=== PATIENT | female | born 1980 | race Two or more races ===

== ENCOUNTER 2022-09-07 11:36 | Emergency (ER) | payer MEDICAID ==
[~2022-09-07] VITALS: Ht 157.5 cm; Wt 56.9 kg
[2022-09-07 12:49] LABS: Basophils # (auto) 0 10 ^3/uL (0-0.2); Basophils % (auto) 0.2 % (0.0-2.0); Eosinophils # (auto) 0 10 ^3/uL (0-0.8); Eosinophils % (auto) 0.6 % (0.0-7.0); Hematocrit 37.6 % (36.0-46.0); Hemoglobin 12.8 g/dL (12.2-16.2); Lymphocytes # (auto) 2.1 10 ^3/uL (0.4-5.4); Mean Corpuscular Hemoglobin 29.6 pg (28.0-32.0); Mean Corpuscular Hgb Conc. 34.1 g/dL (32.0-36.0); Mean Corpuscular Volume 86.8 fL (80.0-100.0); Monocytes # (auto) 0.6 10 ^3/uL (0-1.3); Monocytes % (auto) 7.8 % (0.0-12.0); Neutrophils # (auto) 5.3 10 ^3/uL (1.6-8.6); Neutrophils % (auto) 65.4 % (37.0-80.0); Red Blood Cells 4.33 10^6/uL (4.0-5.20); Red Cell Distribution Width 13.6 % (11.8-14.3)
[2022-09-07 12:53] LABS: Urine Bacteria FEW /hpf (None Seen); Urine Blood Negative /uL (Negative); Urine Mucus FEW (None Seen); Urine Specific Gravity 1.016 (1.001-1.035); Urine WBC 10 /hpf (0 - 5)
[2022-09-07 13:05] LABS: Albumin 3.1 g/dL (3.4-5.0); Calcium 9.1 mg/dL (8.5-10.1); Potassium 3.3 mmol/L (3.5-5.1)
[2022-09-07 13:09] LABS: BUN/Creatinine Ratio 17.6 (10.0-20.0); Bilirubin, Total 0.2 mg/dL (0.2-1.0); Total Protein 7.5 g/dL (6.4-8.2)
[2022-09-07 14:43] VITALS: BP 113/61
[2022-09-07] MEDS ORDERED: CEPH500T PO (16:27)
[2022-09-07] MEDS ORDERED: metroNIDAZOLE 500 MG TAB PO ONE (16:30)
[2022-09-07] MEDS ORDERED: MET075VC VG (16:34)
== END 2022-09-07 16:52 | disposition home or self-care (01) ==
LOC: ER 11:36
DX: O23.41 Unspecified infection of urinary tract in pregnancy, first trimester (principal); N39.0 Urinary tract infection, site not specified; R10.2 Pelvic and perineal pain; Z3A.12 12 weeks gestation of pregnancy
CPT/HCPCS: 36415; 80053; 81001; 84702; 85025; 87070; 87210

== ENCOUNTER 2022-12-31 20:09 | Observation (INO) | payer MEDICAID ==
[~2022-12-31] VITALS: Ht 154.9 cm; Wt 62.1 kg
[~2022-12-31 20:09] MED LIST: CEPH500T PO; MET075VC VG
[2022-12-31] MEDS ORDERED: TERBUTALINE SULFATE 1 MG/ML 1ML VIAL SC ONE (21:39)
[2022-12-31 21:42] LABS: Basophils # (auto) 0 10 ^3/uL (0-0.2); Basophils % (auto) 0.3 % (0.0-2.0); Eosinophils # (auto) 0.1 10 ^3/uL (0-0.8); Eosinophils % (auto) 0.9 % (0.0-7.0); Hematocrit 35.4 % (36.0-46.0); Hemoglobin 11.8 g/dL (12.2-16.2); Lymphocytes # (auto) 2.1 10 ^3/uL (0.4-5.4); Lymphocytes % (auto) 30.2 % (10.0-50.0); Mean Corpuscular Hemoglobin 29.3 pg (28.0-32.0); Mean Corpuscular Hgb Conc. 33.3 g/dL (32.0-36.0); Mean Corpuscular Volume 88.1 fL (80.0-100.0); Monocytes # (auto) 0.5 10 ^3/uL (0-1.3); Monocytes % (auto) 7.7 % (0.0-12.0); Neutrophils # (auto) 4.1 10 ^3/uL (1.6-8.6); Neutrophils % (auto) 60.9 % (37.0-80.0); Red Blood Cells 4.01 10^6/uL (4.0-5.20); White Blood Cell 6.8 10^3/uL (4.4-10.8)
[2022-12-31 22:01] LABS: Alanine Aminotransferase 12 U/L (7-40); Albumin 3.9 g/dL (3.2-4.8); Alkaline Phosphatase 110 U/L (46-116); Anion Gap 7 (5-15); Aspartate Aminotransferase 14 U/L (13-40); BUN/Creatinine Ratio 20.5 (10.0-20.0); Bilirubin, Total 0.2 mg/dL (0.2-1.0); Blood Urea Nitrogen 9 mg/dL (9-23); Calcium 8.8 mg/dL (8.7-10.4); Carbon Dioxide 23 mmol/L (20-30); Chloride 107 mmol/L (98-107); Glucose 92 mg/dL (74-106); Potassium 3.6 mmol/L (3.5-5.1); Sodium 137 mmol/L (136-145); Total Protein 6.4 g/dL (5.7-8.2)
[2022-12-31] MEDS ORDERED: PREN27TA7 OR (22:37)
== END 2022-12-31 23:00 | disposition home or self-care (01) ==
LOC: LDRP 20:09
PROVIDERS: ADMIT Obstetrics & Gynecology; ATTEND Obstetrics & Gynecology
DX: O60.03 Preterm labor without delivery, third trimester (principal); O26.873 Cervical shortening, third trimester; Z3A.30 30 weeks gestation of pregnancy
CPT/HCPCS: 36415; 59025; 76815; 80053; 81002; 85025; 94760; G0378; J3105; 96372

== ENCOUNTER 2023-01-06 10:40 | Observation (INO) | payer MEDICAID ==
[~2023-01-06] VITALS: Ht 165.1 cm; Wt 72.6 kg
[~2023-01-06 10:40] MED LIST changes: +PREN27TA7 OR
[2023-01-06] MEDS ORDERED: TERBUTALINE SULFATE 1 MG/ML 1ML VIAL SC ONE (11:15)
[2023-01-06] MEDS ORDERED: NIF10C PO (13:05)
== END 2023-01-06 13:27 | disposition home or self-care (01) ==
LOC: LDRP 10:40 → UNDOADMOB 10:40 → LDRP 10:48 → UNDODISOB 13:27
PROVIDERS: ADMIT Obstetrics & Gynecology; ATTEND Obstetrics & Gynecology
DX: O60.03 Preterm labor without delivery, third trimester (principal); Z3A.30 30 weeks gestation of pregnancy
CPT/HCPCS: 59025; 81002; 82948; 96372; G0378; J3105

== ENCOUNTER 2023-01-24 16:25 | Inpatient (IN) | payer MEDICAID ==
[~2023-01-24] VITALS: Ht 149.9 cm; Wt 62.1 kg
[~2023-01-24 16:25] MED LIST changes: +NIF10C PO
[2023-01-24] MEDS ORDERED: PENICILLIN G POT 5MIL/D5 50ML 50 ML IV ONE (17:30)
[2023-01-24] MEDS ORDERED: MAGNESIUM SULFATE 40MG/ML 1,000 ML IV SCH (17:30)
[2023-01-24] MEDS ORDERED: LACTATED RINGER'S 1,000 ML IV SCH (17:30)
[2023-01-24] MEDS ORDERED: LORazepam 2MG/ML-1ML VIAL IV ONE (17:30)
[2023-01-24] MEDS ORDERED: MAGNESIUM SULFATE 100 ML IV ONE ×2 (17:30→17:36)
[2023-01-24] MEDS ORDERED: MAGNESIUM SULFATE 40MG/ML 1,000 ML IV ONE (17:36)
[2023-01-24 19:27] LABS: Basophils # (auto) 0 10 ^3/uL (0-0.2); Basophils % (auto) 0.3 % (0.0-2.0); Eosinophils # (auto) 0 10 ^3/uL (0-0.8); Eosinophils % (auto) 0.8 % (0.0-7.0); Hematocrit 36.7 % (36.0-46.0); Hemoglobin 12.4 g/dL (12.2-16.2); Lymphocytes # (auto) 2.1 10 ^3/uL (0.4-5.4); Lymphocytes % (auto) 34.7 % (10.0-50.0); Mean Corpuscular Hemoglobin 29.9 pg (28.0-32.0); Mean Corpuscular Hgb Conc. 33.8 g/dL (32.0-36.0); Mean Corpuscular Volume 88.4 fL (80.0-100.0); Monocytes # (auto) 0.5 10 ^3/uL (0-1.3); Monocytes % (auto) 7.6 % (0.0-12.0); Neutrophils # (auto) 3.5 10 ^3/uL (1.6-8.6); Neutrophils % (auto) 56.6 % (37.0-80.0); Nucleated Red Blood Cells % 0.1 %; Red Blood Cells 4.15 10^6/uL (4.0-5.20); Red Cell Distribution Width 14.1 % (11.8-14.3); White Blood Cell 6.1 10^3/uL (4.4-10.8)
[2023-01-24 19:46] LABS: Alanine Aminotransferase 10 U/L (7-40); Albumin 3.7 g/dL (3.2-4.8); Alkaline Phosphatase 131 U/L (46-116); Anion Gap 12 (5-15); Aspartate Aminotransferase 17 U/L (13-40); BUN/Creatinine Ratio 22.7 (10.0-20.0); Blood Urea Nitrogen 10 mg/dL (9-23); Calcium 8.8 mg/dL (8.5-10.1); Carbon Dioxide 20 mmol/L (20-30); Chloride 105 mmol/L (98-107); Glucose 92 mg/dL (74-106); Potassium 3.9 mmol/L (3.5-5.1); Sodium 137 mmol/L (136-145)
[2023-01-24 19:47] LABS: Bilirubin, Total 0.3 mg/dL (0.2-1.0); INR 0.87 (0.9-1.15); Partial Thromboplastin Time 25.6 SEC (24.5-34.5); Prothrombin Time 9.2 sec (9.3-11.8); Total Protein 5.9 g/dL (5.7-8.2)
[2023-01-24 20:57] LABS: Urine Bacteria FEW /hpf (None Seen); Urine Blood Negative /uL (Negative); Urine Clarity HAZY (Clear); Urine Color Colorless (Yellow); Urine Protein, UAD Negative (Negative); Urine Specific Gravity 1.014 (1.001-1.035); Urine Urobilinogen Normal (Negative); Urine WBC 8 /hpf (0 - 5)
[2023-01-24 21:02] LABS: Amphetamine Screen, Urine Neg (NEGATIVE)
[2023-01-24 21:03] LABS: Barbiturate Scree,Urine Neg (NEGATIVE); Benzodiazephine Screen, Urine Neg (NEGATIVE); Cannabinoid Screen, Urine Neg (NEGATIVE); Cocaine Screen, Urine Neg (NEGATIVE); Opiate Scree,Urine Neg (NEGATIVE); Phencyclidine Screen, Urine Neg (NEGATIVE)
[2023-01-24] MEDS ORDERED: PENICILLIN G POTASSIUM 2,500,000 UNITS in D5W 5% 50 ML IV SCH (22:00)
[2023-01-26 07:07] LABS: RPR Non Reactive (Non Reactive)
[2023-01-27 19:06] LABS: Treponema pallidum Ab (FTA-Ab) Non Reactive (Non Reactive)
== END 2023-01-24 20:12 | disposition short-term general hospital (02) | DRG 566 ==
LOC: LDRP 16:25 → OBSVTOIN 17:30
PROVIDERS: ADMIT Obstetrics & Gynecology; ATTEND Obstetrics & Gynecology
DX: O60.03 Preterm labor without delivery, third trimester (principal); Z3A.33 33 weeks gestation of pregnancy
CPT/HCPCS: 36415; 59025; 80053; 80307; 81001; 81002; 83735; 85025; 85610; 85730; 86592; 86850; 86900; 86901; 94760; 96360; 96361; 96365; 96366; G0378; J7060

== ENCOUNTER 2023-02-17 10:15 | Inpatient (IN) | payer MEDICAID ==
[~2023-02-17] VITALS: Ht 157.5 cm; Wt 66.7 kg
[2023-02-17 11:24] LABS: Basophils # (auto) 0 10 ^3/uL (0-0.2); Basophils % (auto) 0.4 % (0.0-2.0); Eosinophils # (auto) 0 10 ^3/uL (0-0.8); Eosinophils % (auto) 0.6 % (0.0-7.0); Hematocrit 37.9 % (36.0-46.0); Hemoglobin 12.7 g/dL (12.2-16.2); Lymphocytes # (auto) 1.7 10 ^3/uL (0.4-5.4); Mean Corpuscular Hemoglobin 29.7 pg (28.0-32.0); Mean Corpuscular Hgb Conc. 33.5 g/dL (32.0-36.0); Mean Corpuscular Volume 88.5 fL (80.0-100.0); Monocytes # (auto) 0.4 10 ^3/uL (0-1.3); Monocytes % (auto) 7.6 % (0.0-12.0); Neutrophils # (auto) 3.4 10 ^3/uL (1.6-8.6); Neutrophils % (auto) 61.4 % (37.0-80.0); Red Blood Cells 4.28 10^6/uL (4.0-5.20); Red Cell Distribution Width 14.8 % (11.8-14.3); White Blood Cell 5.6 10^3/uL (4.4-10.8)
[2023-02-17 11:40] LABS: Alanine Aminotransferase 17 U/L (7-40); Albumin 3.7 g/dL (3.2-4.8); Alkaline Phosphatase 148 U/L (46-116); Anion Gap 11 (5-15); Aspartate Aminotransferase 16 U/L (13-40); Blood Urea Nitrogen 8 mg/dL (9-23); Calcium 8.9 mg/dL (8.5-10.1); Carbon Dioxide 20 mmol/L (20-30); Chloride 106 mmol/L (98-107); Glucose 108 mg/dL (74-106); Potassium 3.7 mmol/L (3.5-5.1); Sodium 137 mmol/L (136-145)
[2023-02-17 11:41] LABS: Bilirubin, Total 0.2 mg/dL (0.2-1.0); Total Protein 6.2 g/dL (5.7-8.2)
[2023-02-17] MEDS ORDERED: PENICILLIN G POT 5MIL/D5 50ML 50 ML IV ONE ×2 (12:15→14:08)
[2023-02-17] MEDS ORDERED: BUTORPHANOL TARTRATE 2 MG/1 ML VIAL IV PRN ×2 (12:15)
[2023-02-17] MEDS ORDERED: PROMETHAZINE HCL 25 MG/ML 1ML IV PRN (12:15)
[2023-02-17] MEDS ORDERED: LIDOCAINE 2%HCL (LOCAL ANESTH.) INJ 20ML MDV IJ PRN (12:15)
[2023-02-17 13:37] LABS: Urine Bacteria FEW /hpf (None Seen); Urine Blood Negative /uL (Negative); Urine Clarity HAZY (Clear); Urine Color Yellow (Yellow); Urine Protein, UAD TRACE (Negative); Urine Specific Gravity 1.017 (1.001-1.035); Urine Urobilinogen Normal (Negative); Urine WBC 5 /hpf (0 - 5)
[2023-02-17 13:38] LABS: Amphetamine Screen, Urine Neg (NEGATIVE); Barbiturate Scree,Urine Neg (NEGATIVE); Benzodiazephine Screen, Urine Neg (NEGATIVE); Cocaine Screen, Urine Neg (NEGATIVE); Opiate Scree,Urine Neg (NEGATIVE)
[2023-02-17 13:39] LABS: Cannabinoid Screen, Urine Neg (NEGATIVE); Phencyclidine Screen, Urine Neg (NEGATIVE)
[2023-02-17 13:48] LABS: INR 0.85 (0.9-1.15); Partial Thromboplastin Time 26.1 SEC (24.5-34.5)
[2023-02-17] MEDS: LACTATED RINGER'S 1,000 ML IV SCH ×2 (14:12→18:20)
[2023-02-17] MEDS ORDERED: LACT. RINGERS/OXYTOCIN 20UNITS 1,000 ML IV SCH (15:00)
[2023-02-17] MEDS ORDERED: LACT. RINGERS/OXYTOCIN 20UNITS 500 ML IV ONE ×2 (15:00→15:30)
[2023-02-17] MEDS ORDERED: TERBUTALINE SULFATE 1 MG/ML 1ML VIAL SC PRN (15:00)
[2023-02-17] MEDS ORDERED: LACT. RINGERS/OXYTOCIN 20UNITS 1,000 ML IV ONE (15:27)
[2023-02-17] MEDS ORDERED: LIDOCAINE 2%HCL (LOCAL ANESTH.) INJ 20ML MDV ONE (15:27)
[2023-02-17] MEDS ORDERED: PENICILLIN G POTASSIUM 2,500,000 UNITS in D5W 5% 50 ML IV SCH (16:15)
[2023-02-17] MEDS: PENICILLIN G POTASSIUM 2,500,000 UNITS in D5W 5% 50 ML IV SCH ×2 (18:14→22:06)
[2023-02-17] MEDS ORDERED: LIDOCAINE HCL 2 %PF INJ 10ML AMP IJ ONE (19:15)
[2023-02-17] MEDS ORDERED: LACTATED RINGER'S 1,000 ML IV ONE (19:15)
[2023-02-17] MEDS ORDERED: NALOXONE HCL 0.4 MG/ML VIAL IV ONE (19:15)
[2023-02-17] MEDS ORDERED: ePHEDrine SULFATE 50 MG/ML AMP IV ONE (19:15)
[2023-02-17] MEDS ORDERED: fentaNYL CITRATE 100 MCG/2 ML VL IV ONE (19:15)
[2023-02-18] MEDS ORDERED: fentaNYL CITRATE 100 MCG/2 ML VL IV PRN
[2023-02-18] MEDS ORDERED: PROMETHAZINE HCL 25 MG/ML 1ML IM PRN
[2023-02-18] MEDS ORDERED: MINERAL OIL TOPICAL 10ml TOP PRN
[2023-02-18] MEDS ORDERED: ROPIVACAINE HCL 100 ML ONE ×2 (00:15→08:33)
[2023-02-18] MEDS: DERMOPLAST 60ML BOTTLE TOP PRN ×2 (00:51→14:15)
[2023-02-18] MEDS: PHISODERM TOP SOLN 240ML BTL TOP PRN ×2 (00:51→14:15)
[2023-02-18] MEDS: WITCH HAZEL-GLYCERIN PAD TOP PRN ×2 (00:51→14:15)
[2023-02-18] MEDS: PENICILLIN G POTASSIUM 2,500,000 UNITS in D5W 5% 50 ML IV SCH ×3 (01:54→12:13)
[2023-02-18] MEDS: LACTATED RINGER'S 1,000 ML IV SCH (06:03)
[2023-02-18 07:06] LABS: RPR Non Reactive (Non Reactive)
[2023-02-18] MEDS ORDERED: ONDANSETRON ODT 4 MG TAB PO PRN (14:30)
[2023-02-18] MEDS ORDERED: ACETAMINOPHEN 325 MG TAB PO PRN (14:30)
[2023-02-18 15:40] VITALS: BP 131/59; PULSE 68; RESP 18; TEMP 98.3; O2SAT 97
[2023-02-18] MEDS: IBUPROFEN 600 MG TAB PO PRN (17:15)
[2023-02-18 18:45] VITALS: BP 125/56; PULSE 71; RESP 20; TEMP 98.7; O2SAT 98
[2023-02-18 19:19] VITALS: BP 125/56; PULSE 71; RESP 20; TEMP 98.7; O2SAT 98
[2023-02-18 23:00] VITALS: BP 136/62; PULSE 74; RESP 16; TEMP 98.5; O2SAT 97
[2023-02-19 03:00] VITALS: BP 126/62; PULSE 68; RESP 18; TEMP 98; O2SAT 99
[2023-02-19] MEDS: IBUPROFEN 600 MG TAB PO PRN ×2 (03:08→21:23)
[2023-02-19] MEDS ORDERED: IBU600T PO (06:47)
[2023-02-19 07:00] VITALS: BP 137/64; PULSE 48; RESP 18; TEMP 97.7; O2SAT 99
[2023-02-19 11:00] VITALS: BP 113/63; PULSE 52; RESP 18; TEMP 97.8; O2SAT 99
[2023-02-19 15:00] VITALS: BP 110/63; PULSE 52; RESP 18; TEMP 98.1; O2SAT 99
[2023-02-19 18:55] VITALS: BP 111/63; PULSE 56; RESP 17; TEMP 99; O2SAT 98
[2023-02-19 23:00] VITALS: BP 114/58; PULSE 57; RESP 17; TEMP 98.9; O2SAT 99
[2023-02-20 07:00] VITALS: BP 123/72; PULSE 55; RESP 16; TEMP 97.9; O2SAT 98
[2023-02-20 11:00] VITALS: BP 128/62; PULSE 55; RESP 16; TEMP 97.9; O2SAT 98
[2023-02-20 15:00] VITALS: BP 126/66; PULSE 58; PULSE 70; RESP 16; TEMP 98.2; O2SAT 98
[2023-02-20] MEDS: IBUPROFEN 600 MG TAB PO PRN (15:39)
[2023-02-20 18:15] VITALS: BP 133/62; PULSE 67; RESP 19; TEMP 98.1; O2SAT 96
[2023-02-20 21:30] VITALS: BP 133/62; PULSE 67; RESP 18; TEMP 98.1; O2SAT 96
== END 2023-02-20 21:30 | disposition left against medical advice (07) | DRG 560 ==
LOC: LDRP 10:15 → OBSVTOIN 12:18 → LDRP 12:19
PROVIDERS: ADMIT Obstetrics & Gynecology; ATTEND Obstetrics & Gynecology
PROC: 10E0XZZ Delivery of Products of Conception, External Approach (ICD-10-PCS; principal; 2023-02-18)
PROC: 3E0R3BZ Introduction of Anesthetic Agent into Spinal Canal, Percutaneous Approach (ICD-10-PCS; 2023-02-18)
PROC: 00HU33Z Insertion of Infusion Device into Spinal Canal, Percutaneous Approach (ICD-10-PCS; 2023-02-18)
DX: O26.643 Intrahepatic cholestasis of pregnancy, third trimester (principal); Z37.0 Single live birth; K83.1 Obstruction of bile duct; O60.14X0 Preterm labor third trimester with preterm delivery third trimester, not applicable or unspecified; Z3A.36 36 weeks gestation of pregnancy
CPT/HCPCS: 36415; 59025; 59409; 76818; 80053; 80307; 81001; 81002; 85025; 85610; 85730; 86592; 86850; 86900; 86901; 94760; 94762; 96360; 96361; 96365; 96366; G0378; J2540; J2590; J7060